=== PATIENT | female | born 1995 | race Asian ===

== ENCOUNTER 2019-12-26 03:30 | Inpatient (IN) | payer OTHER ==
[2019-12-26] MEDS ORDERED: BUTORPHANOL TARTRATE 1 MG/ML VIAL IVPUSH PRN (06:48)
[2019-12-26] MEDS ORDERED: PROMETHAZINE HCL 25 MG/1 ML VIAL IVPUSH ONE (06:49)
--- NOTE | 2019-12-26 06:55 | HP ---
Past Medical History - Admission Chief Complaint: Labor pain History of Present Illness: 24 yo , @ 39 weeks gestation, EDC 12/28/19, presents to L&D c/o labor pain. Upon admission she was 1cm dilated. She states that she can't go home because she doesn't have a car. History Source: Patient Limitations to Obtaining History: No Limitations - Past Medical History ...: 1 ...Para: 0 ...Term: 0 ...: 0 ...Spon : 0 ...Induced : 0 ...Living Children: 0 ...LMP: 03/22/19 ... Weeks Gestation by Dates: 39.6 ...EDC by Dates: 12/27/19 ...EDC by Sono: 12/28/19 - Past Surgical History Past Surgical History: Yes: None Hx Myomectomy: No Hx Transabdominal Cerclage: No - Smoking History Have you smoked in the past 12 months: No - Alcohol/Substance Use Hx Alcohol Use: No History of Substance Use: reports: None - Social History History of Recent Travel: No Home Medications - Allergies Allergies/Adverse Reactions: Allergies Allergy/AdvReac Type Severity Reaction Status Date / Time No Known Allergies Allergy Verified 12/26/19 04:23 - Home Medications Home Medications: Ambulatory Orders Pnv No.95/Ferrous Fum/Folic AC [ Formula] 1 each PO DAILY 12/26/19 Family Medical History Family History: Unremarkable Review of Systems - Review of Systems Constitutional: reports: No Symptoms Eyes: reports: No Symptoms HENT: reports: No Symptoms Neck: reports: No Symptoms Cardiovascular: reports: No Symptoms Respiratory: reports: No Symptoms Gastrointestinal: reports: No Symptoms Genitourinary: reports: Pain Breasts: reports: No Symptoms Reported Musculoskeletal: reports: No Symptoms Neurological: reports: No Symptoms Psychiatric: reports: No Symptoms Pain Intensity: 6 Physical Exam - Maternity Vital Signs: Vital Signs Temperature 98.1 F 12/26/19 04:00 Pulse Rate 79 12/26/19 04:00 Respiratory Rate 18 12/26/19 04:00 Blood Pressure 111/73 12/26/19 04:00 O2 Sat by Pulse Oximetry (%) Constitutional: Yes: No Distress Eyes: Yes: Conjunctiva Clear HENT: Yes: Atraumatic Neck: Yes: Supple Cardiovascular: Yes: Regular Rate and Rhythm Lungs: Clear to auscultation - Abdominal Exam/OB Number of Fetuses: Single Presentation: Vertex Contractions: Yes Intensity: Moderate - Vaginal Exam/OB Vaginal Bleeding: Light Dilatation (cm): 1 Effacement (%): 90 Amniotic Membrane Status: Intact Presentation: Vertex/Position Station: -2 - Physical Exam Musculoskeletal: Yes: WNL Extremities: Yes: WNL ...Motor Strength: WNL Psychiatric: Yes: Alert, Oriented Problem List - Problems (1) 39 weeks gestation of Problems reviewed: Yes Code(s): Z3A.39 - 39 WEEKS GESTATION OF (2) Pain during labor Problems reviewed: Yes Code(s): O99.89 - OTH DISEASES AND CONDITIONS COMPL PREG/CHLDBRTH; R52 - PAIN, UNSPECIFIED Assessment/Plan 39 weeks gestation Labor pain Admit to L&D Analgesia as needed Anticipate
[2019-12-26] MEDS: DEXTROSE 5%-LACTATED RINGERS 1,000 ML IV SCH (07:30)
[2019-12-26 07:43] LABS: INR 0.92 (0.83-1.09); PROTHROMBIN TIME (PATIENT) 10.8 SEC (9.7-13.0)
[2019-12-26 07:46] LABS: ACTIVATED PTT 31.1 SECONDS (25.2-36.5)
[2019-12-26 07:47] VITALS: BMI 29.2
[2019-12-26] MEDS ORDERED: BUTORPHANOL TARTRATE 2 MG/ML VIAL ONE (07:54)
[2019-12-26] MEDS ORDERED: PROMETHAZINE HCL 25 MG/1 ML VIAL ONE (07:54)
[2019-12-26 07:56] LABS: BASO % 0.2 % (0-2.0); EOS % 0.2 % (0-4.5); HEMATOCRIT 37.3 % (32.4-45.2); HEMOGLOBIN 12.3 GM/dL (10.7-15.3); MCH 28.7 pg (25.7-33.7); MCHC 32.9 g/dl (32.0-36.0); MEAN CELL VOLUME 87.3 fl (80-96); MEAN PLT VOLUME 7.6 fl (7.5-11.1); MONO % 3.5 % (3.8-10.2); NEUT % 84.1 % (42.8-82.8); PLATELET COUNT 299 K/MM3 (134-434); RBC 4.28 M/mm3 (3.60-5.2); RDW 14.5 % (11.6-15.6); WHITE BLOOD COUNT 11.8 K/mm3 (4.0-10.0)
[2019-12-26 07:58] LABS: BLOOD UREA NITROGEN 7.1 mg/dL (7-18); CALCIUM 9.1 mg/dL (8.5-10.1); CREATININE 0.5 mg/dL (0.55-1.3)
[2019-12-26] MEDS ORDERED: OXYTOCIN 30 UNITS in 0.9% NS 30 UNIT/500 ML INFUS.BAG IVPB ONE (12:12)
[2019-12-26] MEDS: OXYTOCIN 30 UNITS in 0.9% NS 30 UNIT/500 ML INFUS.BAG IVPB SCH (12:15)
[2019-12-26] MEDS ORDERED: BUPIVACAINE HCL/PF 0.25% (2.5MG/ML) 10 ML VIAL ONE (14:19)
[2019-12-26] MEDS ORDERED: FENTANYL/BUPIVACAINE/NS/PF - PCEA - 50 ML DISP.SYRIN EP ONE (14:22)
[2019-12-26] MEDS ORDERED: PCA PUMP NR ONE (14:22)
[2019-12-26] MEDS: FENTANYL/BUPIVACAINE/NS/PF - PCEA - 50 ML DISP.SYRIN EP SCH (14:45)
[2019-12-26] MEDS ORDERED: NALOXONE HCL 0.4 MG/ML VIAL IVPUSH PRN (14:46)
[2019-12-26] MEDS ORDERED: LIDOCAINE HCL 1% PRESERVATIVE FREE - 30ML VIAL ONE (18:10)
[2019-12-26] MEDS ORDERED: OXYTOCIN 20 UNITS in 0.9% NS 20 UNIT/1,000 ML INFUS.BAG IV ONE (18:10)
[2019-12-26] MEDS ORDERED: BISACODYL 10 MG SUPP.RECT RC PRN (20:24)
[2019-12-26] MEDS ORDERED: METHYLERGONOVINE MALEATE 0.2 MG/1 ML AMP IM PRN (20:24)
[2019-12-26] MEDS ORDERED: WITCH HAZEL 50% (TUCKS) 40 PAD/JAR PAD TP PRN (20:24)
[2019-12-26] MEDS ORDERED: BENZOCAINE 28 GM HEMORRHOIDAL OINTMENT TP PRN (20:24)
--- NOTE | 2019-12-26 20:29 | PN ---
Delivery - Delivery Vaginal Delivery: Spontaneous Type of Anesthesia: Epidural Episiotomy/Laceration: Midline, 3rd degree EBL (cc): 350 Delivery, Single - [place] Feeding Plan Initial Plan: Exclusive throughout hospitalization Remarks - Remarks Remarks: Normal spontaneous vaginal delivery of a live girl over midline episiotomy that has extended to third degree laceration. Nose / Oropharynx suctioned @ perineum. Baby handed to mother then to nurse. Placenta expelled spontaneously intact. Episiotomy repaired with 2.0 Chromic and 2.0 Biosyn. Mother in stable condition.
[2019-12-26] MEDS ORDERED: OXYTOCIN 20 UNITS in 0.9% NS 20 UNIT/1,000 ML INFUS.BAG IV SCH (20:30)
[2019-12-26] MEDS: IBUPROFEN 600 MG TABLET (FP) PO PRN (20:35)
[2019-12-26] MEDS ORDERED: IBUPROFEN 600 MG TABLET (FP) PO ONE (20:46)
[2019-12-26] MEDS: FERROUS SO4 325 MG TABLET (FP) PO SCH (22:00)
[2019-12-27] MEDS: ACETAMINOPHEN 325 MG TABLET (FP) PO PRN ×3 (04:23→21:36)
[2019-12-27] MEDS: IBUPROFEN 600 MG TABLET (FP) PO PRN ×3 (04:24→21:36)
[2019-12-27] MEDS: FERROUS SO4 325 MG TABLET (FP) PO SCH ×2 (09:35→21:37)
[2019-12-27] MEDS: PRENATAL VITAMINS W/ FOLIC ACID TABLET (FP) PO SCH (09:35)
[2019-12-27 11:29] LABS: BASO % 0.1 % (0-2.0); EOS % 0.4 % (0-4.5); LYMPH % 9.8 % (8-40); MCH 28.8 pg (25.7-33.7); MCHC 33.2 g/dl (32.0-36.0); MEAN CELL VOLUME 86.7 fl (80-96); MEAN PLT VOLUME 7.4 fl (7.5-11.1); MONO % 5.2 % (3.8-10.2); NEUT % 84.5 % (42.8-82.8); PLATELET COUNT 263 K/MM3 (134-434); RBC 3.12 M/mm3 (3.60-5.2); RDW 14.6 % (11.6-15.6); WHITE BLOOD COUNT 14.5 K/mm3 (4.0-10.0)
--- NOTE | 2019-12-27 11:51 | PN ---
Post Progress Note - Subjective Subjective: 24 yo Para 1, status post vaginal delivery, seen and evaluated. Doing well. Post Day: 1 Type of Delivery: Vital Signs: Vital Signs Temperature 98.1 F 12/27/19 10:00 Pulse Rate 96 H 12/27/19 10:00 Respiratory Rate 18 12/27/19 10:00 Blood Pressure 122/78 12/27/19 10:00 O2 Sat by Pulse Oximetry (%) 100 12/26/19 18:45 Breast Exam: Yes: Soft Uterus: Yes: Fundus Firm Abdomen/GI: Yes: Abdomen soft Lochia: Yes: Rubra Lochia, amount: Moderate Extremities: Yes: Calves non-tender Perineum: Yes: Episiotomy (Healing) Activity: Ambulating - Labs Labs: CBC WBC 14.5 K/mm3 (4.0-10.0) H 12/27/19 10:53 RBC 3.12 M/mm3 (3.60-5.2) L 12/27/19 10:53 Hgb 9.0 GM/dL (10.7-15.3) L 12/27/19 10:53 Hct 27.0 % (32.4-45.2) L D 12/27/19 10:53 MCV 86.7 fl (80-96) 12/27/19 10:53 MCH 28.8 pg (25.7-33.7) 12/27/19 10:53 MCHC 33.2 g/dl (32.0-36.0) 12/27/19 10:53 RDW 14.6 % (11.6-15.6) 12/27/19 10:53 Plt Count 263 K/MM3 (134-434) 12/27/19 10:53 MPV 7.4 fl (7.5-11.1) L 12/27/19 10:53 Absolute Neuts (auto) 12.2 K/mm3 (1.5-8.0) H 12/27/19 10:53 Neutrophils % 84.5 % (42.8-82.8) H 12/27/19 10:53 Lymphocytes % 9.8 % (8-40) 12/27/19 10:53 Monocytes % 5.2 % (3.8-10.2) 12/27/19 10:53 Eosinophils % 0.4 % (0-4.5) D 12/27/19 10:53 Basophils % 0.1 % (0-2.0) 12/27/19 10:53 Nucleated RBC % 0 % (0-0) 12/27/19 10:53 Problem List - Problems (1) 39 weeks gestation of Problems reviewed: Yes Code(s): Z3A.39 - 39 WEEKS GESTATION OF (2) Pain during labor Problems reviewed: Yes Code(s): O99.89 - OTH DISEASES AND CONDITIONS COMPL PREG/CHLDBRTH; R52 - PAIN, UNSPECIFIED (3) Status post normal vaginal delivery Problems reviewed: Yes Code(s): FQQ1858 - Assessment/Plan Status post normal vaginal delivery Stable Continue routine care
[2019-12-27] MEDS: OXYTOCIN 30 UNITS in 0.9% NS 30 UNIT/500 ML INFUS.BAG IVPB SCH (12:07)
[2019-12-27] MEDS: BENZOCAINE 20% 57 GM BOTTLE TP PRN ×2 (12:53→21:37)
[2019-12-27] MEDS: DEXTROSE 5%-LACTATED RINGERS 1,000 ML IV SCH (14:38)
[2019-12-27] MEDS: FENTANYL/BUPIVACAINE/NS/PF - PCEA - 50 ML DISP.SYRIN EP SCH (21:59)
[2019-12-27] MEDS ORDERED: SENNOSIDES/DOCUSATE COMBO (SENNA PLUS) TABLET (UD) PO PRN (22:00)
[2019-12-28] MEDS: FERROUS SO4 325 MG TABLET (FP) PO SCH (09:31)
[2019-12-28] MEDS: ACETAMINOPHEN 325 MG TABLET (FP) PO PRN (09:31)
[2019-12-28] MEDS: IBUPROFEN 600 MG TABLET (FP) PO PRN (09:32)
[2019-12-28] MEDS: PRENATAL VITAMINS W/ FOLIC ACID TABLET (FP) PO SCH (09:35)
[2019-12-28 13:58] VITALS: BP 111/74; PULSE 87; TEMP 98
--- NOTE | 2019-12-30 15:00 | DS ---
Physical Exam-INSTRUCTIONAL DESIGN MANAGER Vital Signs: Vital Signs Temperature 98 F 12/28/19 10:00 Pulse Rate 87 12/28/19 10:00 Respiratory Rate 20 12/28/19 10:00 Blood Pressure 111/74 12/28/19 10:00 O2 Sat by Pulse Oximetry (%) 100 12/28/19 10:00 Constitutional: Yes: No Distress Eyes: Yes: Conjunctiva Clear HENT: Yes: Atraumatic Neck: Yes: Supple Cardiovascular: Yes: Regular Rate and Rhythm Respiratory: Yes: Regular Gastrointestinal: Yes: Normal Bowel Sounds External Genitalia: Yes: Normal Vaginal Exam: Yes: Normal Cervix: Yes: Normal Uterus: Yes: Firm ....Post : Yes: Uterus firm, Moderate lochia serosa Musculoskeletal: Yes: WNL Extremities: Yes: WNL Neurological: Yes: Alert, Oriented ...Motor Strength: WNL Psychiatric: Yes: Alert, Oriented Labs: CBC, BMP 12/27/19 10:53 12/26/19 07:25 Delivery - Delivery Vaginal Delivery: Spontaneous Type of Anesthesia: Epidural Episiotomy/Laceration: Midline, 3rd degree EBL (cc): 350 Delivery, Single - Stages of Labor Date 1st Stage Initiatied: 12/26/19 Time 1st Stage Initiated: 02:00 Date 2nd Stage Initiated: 12/26/19 Time 2nd Stage Initiated: 19:00 Date of Delivery: 12/26/19 Time of Delivery: 19:51 Time Placenta Delivered: 20:00 - 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 Gender: Female Weight: 6 lb 8 oz Total Hours ROM (Hrs/Mins): 2/1 - 1 Minute Total Score: 9 5 Minutes Total Score: 9 - [place] Feeding Plan Initial Plan: Exclusive throughout hospitalization Discharge Summary Problems reviewed: Yes Reason For Visit: ADMIT LABOR Procedures: Principal: Normal spontaneous vaginal delivery Hospital Course: Routine care Health Concerns: None Plan of Treatment: Analgesia as needed F/U in clinic in 6 weeks Goals: Resume regular activities in 6 weeks Condition: Good - Instructions Diet, Activity, Other Instructions: Regular diet No douching, no sexual intercourse x 4 weeks F/U in clinic in 6 weeks Disposition: HOME - Home Medications Comprehensive Discharge Medication List: Ambulatory Orders Pnv No.95/Ferrous Fum/Folic AC [ Formula] 1 each PO DAILY 12/26/19 Ferrous Sulfate [Feosol] 325 mg PO BID #90 tablet 12/28/19
== END 2019-12-28 14:45 | disposition home or self-care (01) | DRG 542 ==
LOC: JDEL 03:30 → JLDR 06:10 → J3N 21:50 → J3W 12-27 17:33
PROVIDERS: ADMIT Obstetrics & Gynecology; ATTEND Obstetrics & Gynecology
PROC: 10E0XZZ Delivery of Products of Conception, External Approach (ICD-10-PCS; principal; 2019-12-26)
PROC: 0DQR0ZZ Repair Anal Sphincter, Open Approach (ICD-10-PCS; 2019-12-26)
DX: O70.20 Third degree perineal laceration during delivery, unspecified (principal); O99.89 Other specified diseases and conditions complicating pregnancy, childbirth and the puerperium; R52 Pain, unspecified; Z3A.39 39 weeks gestation of pregnancy; Z37.0 Single live birth
CPT/HCPCS: 36415; 59025; 59409; 80048; 85025; 85610; 85730; 86780; 86850; 86900; 86901; 87389; U0003